=== PATIENT | male | born 1995 | race Asian ===

== ENCOUNTER 2016-10-22 02:10 | Emergency (ER) | payer OTHER ==
[~2016-10-22] VITALS: Ht 170.2 cm; Wt 74.8 kg
[2016-10-22] MEDS ORDERED: LIDOCAINE 2% 20 ML (XYLOCAINE) VIAL ONE (02:19)
[2016-10-22] MEDS ORDERED: TETANUS,DIPTH,PERTUSS P/F (BOOSTRIX) 0.5 ML VIAL IM ONE (02:30)
[2016-10-22] MEDS ORDERED: LIDOCAINE 2% 20 ML (XYLOCAINE) VIAL INJ ONE (02:30)
[2016-10-22] MEDS ORDERED: LIDOCAINE PF 2% 20 ML (XYLOCAINE) AMP INJ ONE (02:30)
[2016-10-22] MEDS ORDERED: RX-TRIMETH/SULFA. 160-800 MG (BACTRIM DS) TAB PPK#2 PO STA (03:00)
[2016-10-22] MEDS ORDERED: RX-MUPIROCIN (BACTROBAN) 2% OINT 22 GM TUBE TOP STA (03:00)
[2016-10-22] MEDS ORDERED: SULF1TAB35 PO (03:06)
--- NOTE | 2016-10-22 03:07 | ED Integumentary General ---
General Chief Complaint: Laceration Stated Complaint: TRAUMA,FELL ON GLASS Nursing Triage Note: Pt reports he fell on broken wine glasses, cutting hand and R side of head. Lacerations noted to R palm and R side of head. Pt denies LOC w/ fall and denies any other injuries at this time. Bleeding controlled upon arrival to ED. Source: patient History of Present Illness Time seen by provider: 02:09 Initial Comments PT ARRIVES VIA POV PT STATES HE ACCIDENTALLY FELL AND LANDED ON BROKEN WINE GLASSES TONIGHT AT HOME STATES HE HAS HAD 1 GLASS OF WINE TONIGHT C/O LACERATIONS TO RIGHT PALM AND RIGHT FRONTAL SCALP AREA NO LOSS OF CONSCIOUSNESS NO PARESTHESIAS OR MOTOR DEFICITS NO VISION CHANGES NO NECK OR BACK PAIN NO NAUSEA/VOMITING DENIES ANY OTHER INJURIES [facility] Allergies and Home Medications Allergies Coded Allergies: No Known Drug Allergies (Unverified , 10/22/16) Home Medications Sulfamethoxazole/Trimethoprim 1 Each Tablet, 1 EACH PO BID, #20 Prescribed by: CAROLE BUTTERFIELD on 10/22/16 0306 Constitutional: no symptoms reported EENTM: no symptoms reported Respiratory: no symptoms reported Cardiovascular: no symptoms reported Gastrointestinal: no symptoms reported Genitourinary: no symptoms reported Musculoskeletal: see HPI Skin: see HPI Psychiatric/Neurological: Anxiety, Denies Numbness, Denies Paresthesia, Denies Tingling, Denies Weakness Endocrine: No Symptoms Reported Hematologic/Lymphatic: No Symptoms Reported Past Uukhbqt-Fyrhbs-Bzmohe Hx Patient Social History Alcohol Use: Occasionally Uses Recreational Drug Use: No Smoking Status: Never a Smoker Recent Foreign Travel: No Contact w/Someone Who Travel: No Recent Infectious Disease Expo: No Recent Hopitalizations: No Immunizations Up To Date Tetanus Booster (TDap): Unknown Seasonal Allergies Seasonal Allergies: No Surgeries HX Surgeries: No Respiratory Hx Respiratory Disorders: No Cardiovascular Hx Cardiac Disorders: No Neurological Hx Neurological Disorders: No Reproductive System Hx Reproductive Disorders: No Genitourinary Hx Genitourinary Disorders: No Gastrointestinal Hx Gastrointestinal Disorders: No Musculoskeletal Hx Musculoskeletal Disorders: No Endocrine Hx Endocrine Disorders: No HEENT HX ENT Disorders: No Cancer Hx Cancer: No Psychosocial Hx Psychiatric Problems: No Integumentary HX Skin/Integumentary Disorder: No Blood Transfusions Hx Blood Disorders: No Physical Exam Vital Signs Vital Sign - Last 12Hours 10/22/16 02:10 Temp 98.2 Pulse 97 Resp 18 B/P (MAP) 136/87 Pulse Ox 100 O2 Delivery Room Air Capillary Refill : Less Than 3 Seconds General Appearance: WD/WN, no apparent distress, other (VERY ANXIOUS) HEENT: PERRL/EOMI, normal ENT inspection, TMs normal, pharynx normal Neck: non-tender, full range of motion, supple, normal inspection Cardiovascular: regular rate, rhythm, no murmur Respiratory: chest non-tender, normal breath sounds Gastrointestinal: non tender, soft Back: normal inspection Extremities: other (RIGHT PALM WITH LACERATION. 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, no motor/sensory deficits, alert, oriented x 3 Skin: normal color, warm/dry, other (RIGHT FRONTAL SCALP LACERATION AND RIGHT PALM LACERATION) Laceration Repair : Other Wound Location RIGHT FRONTAL SCALP WITH 2.5 CM LACERATION RIGHT PALM WITH 3.5 CM LACERATION Wound's Depth, Shape: irregular, sub Q Wound Explored: no foreign body removed Betadine Prep?: No (BETASEPT) Anesthesia: 1% Lidocaine (2% LIDOCAINE PLAIN) Staple Repair: Stapler 35W Suture: Ethlion Suture Size: 4-0 Sterile Dressing Applied?: Yes Progress SCALP WOUND CLOSED WITH #7 JADIEL RIGHT PALM WOUND CLOSED WITH #7 SUTURES Progress/Results/Core Measures Results/Orders My Orders Orders - CAROLE BUTTERFIELD DO Dipht,Pertuss(Acell),Tet Adult (Boostrix (10/22/16 02:30) Lidocaine 2% Pf 20 Ml (Xylocaine 2% Pf) (10/22/16 02:30) Lidocaine 2% Injection 20 Ml (Xylocaine (10/22/16 02:19) Lidocaine 2% Injection 20 Ml (Xylocaine (10/22/16 02:30) Rx-Trimeth/Sulfameth Ds Tab (Rx-Bactrim/ (10/22/16 03:00) Rx-Mupirocin 2% Oint (Rx-Bactroban) (10/22/16 03:00) Wound Dressing-Ed (10/22/16 03:00) Medications Given in ED Current Medications Medications Dose Ordered Sig/Argelia Route Start Time Stop Time Status Last Admin Dose Admin Diphtheria/ Tetanus/Acell Pertussis 0.5 ml ONCE ONCE IM 10/22/16 02:30 10/22/16 02:31 DC 10/22/16 02:52 0.5 ML Lidocaine HCl 20 ml ONCE ONCE INJ 10/22/16 02:30 10/22/16 02:31 DC 10/22/16 02:48 20 ML Vital Signs/I&O Vital Sign - Last 12Hours 10/22/16 10/22/16 02:10 03:22 Temp 98.2 98.2 Pulse 97 97 Resp 18 18 B/P (MAP) 136/87 Pulse Ox 100 100 O2 Delivery Room Air Blood Pressure Mean: 103 Departure Impression Impression: Primary Impression: Laceration of right hand Additional Impressions: Scalp laceration Oqhdsrrsqi-[id number] (DPT) vaccination administered at current visit Disposition: HOME, SELF-CARE Condition: Stable Departure-Patient Inst. Referrals: [facility] (PCP) Primary Care Physician Patient Instructions: Laceration Repair With Jadiel (DC), Laceration Repair With Stitches (DC), Diphtheria and Tetanus Toxoids, and Acellular Pertussis Vaccine Add. Discharge Instructions: LEAVE HAND DRESSING IN PLACE FOR 24 HOURS, THEN REMOVE AND CLEAN WOUND TWICE A DAY WITH ANTIBACTERIAL SOAP AND WATER ON A Q-TIP, THEN APPLY A FRESH DRESSING-- OTHERWISE DO NOT GET WET YOU MAY SHOWER TO CLEAN HAIR AND SCALP TWICE A DAY, AND DRY WITH WHITE SPOOLER OR GENTLY TOWEL DRY TYLENOL AND MOTRIN NEEDED FOR PAIN SUTURES AND JADIEL OUT IN 10 DAYS---RETURN TO ER FOR REMOVAL OR YOU MAY FOLLOW UP WITH [facility] All discharge instructions reviewed with patient and/or family. Voiced understanding. Scripts Sulfamethoxazole/Trimethoprim (Bactrim Ds Tablet) 1 Each Tablet 1 EACH PO BID, #20 TAB Prov: CAROLE BUTTERFIELD DO 10/22/16 Work/School Note: Work Release Form Date Seen in the Emergency Department: Oct 22, 2016 Return to Work: Oct 25, 2016 Other Restrictions Listed Below: LIMITED USE OF RIGHT HAND X 10 DAYS, AND MUST KEEP WOUNDS CLEAN AND DRY Images Full Body/Extremities Full Progress SEE ADDITIONAL PAPER DIAGRAMS FOR IMAGES CAROLE BUTTERFIELD DO Oct 22, 2016 03:07
[2016-10-22 03:22] VITALS: BP 132/81
== END 2016-10-22 03:22 | disposition home or self-care (01) ==
LOC: ER 02:14
DX: S61.411A Laceration without foreign body of right hand, initial encounter (principal); S01.01XA Laceration without foreign body of scalp, initial encounter; Z23 Encounter for immunization; W18.02XA Striking against glass with subsequent fall, initial encounter; Y92.009 Unspecified place in unspecified non-institutional (private) residence as the place of occurrence of the external cause; Y99.8 Other external cause status
CPT/HCPCS: 12001; 12002; 90471; 90715